=== PATIENT | female | born 1995 | race Caucasian/White ===

== ENCOUNTER 2016-08-06 21:15 | Emergency (ER) | payer MEDICAID ==
[2016-08-06 21:21] VITALS: BP 140/86; PULSE 94; RESP 18; TEMP 98.4; O2SAT 98
--- NOTE | 2016-08-06 21:47 | C.PDOC ---
History Of Present Illness A 20 year old female presents to the emergency room for evaluation of bilateral neck pain that has gradually developed over the past 4 days. Pain is localized and worst with head rotation. Patient also reports, developed some sore throat since yesterday. Patient denies any known trauma/injury, headaches, dizziness, fever, chills, visual changes, focal deficits, CP, SOB, dyspea, nausea, vomiting , denies weakness, sensory or vascular deficits to B/L UEs, or any other active complaints. Time Seen by Provider: 08/06/16 21:45 Chief Complaint (Nursing): Back Pain History Per: Patient History/Exam Limitations: no limitations Onset/Duration Of Symptoms: Days (4) Current Symptoms Are (Timing): Still Present Quality Of Discomfort: "Pain" Severity: Mild Previous Symptoms: Neck Pain Associated Symptoms: None Exacerbating Factor(s): Movement (Head rotation) Recent travel outside of the [place]: No Past Medical History Reviewed: Historical Data, Nursing Documentation, Vital Signs Vital Signs: Last Vital Signs Temp 98.4 F 08/06/16 21:18 Pulse 94 H 08/06/16 21:18 Resp 18 08/06/16 21:18 BP 140/86 08/06/16 21:18 Pulse Ox 98 08/06/16 22:24 Family History: States: Unknown Family Hx - Social History Hx Tobacco Use: No Hx Alcohol Use: No Hx Substance Use: No - Immunization History Hx Tetanus Toxoid Vaccination: Yes Hx Influenza Vaccination: No Hx Pneumococcal Vaccination: No Review Of Systems Except As Marked, All Systems Reviewed And Found Negative. Constitutional: Negative for: Fever Eyes: Negative for: Vision Change Gastrointestinal: Negative for: Nausea, Vomiting Musculoskeletal: Positive for: Neck Pain (Bilateral neck pain) Neurological: Negative for: Headache, Dizziness Physical Exam - Physical Exam Appears: Well, Non-toxic, No Acute Distress Skin: Normal Color, Warm, Dry, No Rash, No Ecchymosis Head: Normacephalic Eye(s): bilateral: Normal Inspection Nose: Normal Oral Mucosa: Moist, No Drooling, No Trismus Throat: Erythema (mild B/L), No Exudate, No Drooling Neck: Decreased ROM (mild discomfort on head rotation to B/L sides due to pain.) , No Midline Cervical Tenderness, No Paracervical Tenderness, No Step Off Deformity, Other (Bilateral cervical tenderness over the length of trapezius muscles with muscle spasms.) Chest: Symmetrical, No Deformity, No Tenderness Cardiovascular: Rhythm Regular Respiratory: Normal Breath Sounds, No Rales, No Rhonchi, No Wheezing Back: Normal Inspection, No CVA Tenderness Extremity: Normal ROM, No Tenderness, No Pedal Edema, No Deformity, No Swelling Extremity: Bilateral: Atraumatic Neurological/Psych: Oriented x3, Normal Speech, Normal Motor, Normal Sensation, Normal Reflexes ED Course And Treatment O2 Sat by Pulse Oximetry: 98 Pulse Ox Interpretation: Normal Progress Note: On re-evaluation, pt is afebrile, hemodynamicaly stable. Non- toxic. PulsEOx 98%RA. ENT: no acute findings. Neck: exam c/w cervical strain , (-) meningeal sign. Lungs: CTA B/L, BS equal B/L. RST (-). Pt advised on course of ds. ref. to F/u with PMD in 1-2 days for re-eval. return if any new changes. Disposition Counseled Patient/Family Regarding: Studies Performed, Diagnosis, Need For Followup, Rx Given - Disposition Referrals: [facility] [Outside] Disposition Time: 22:22 Condition: STABLE Additional Instructions: Take medication as prescribed Keep neck strain Light duty to neck area Follow up with PMD in 2-3 days for re-evaluation. Return to ED if any worsening or new changes. Prescriptions: Ibuprofen [Motrin] 1 tab PO TID PRN #20 tab PRN Reason: Pain Methocarbamol [Robaxin] 500 mg PO TID #14 tab Instructions: Cervical Sprain (ED) - Clinical Impression Clinical Impression: Cervical strain - Scribe Statement The provider has reviewed the documentation as recorded by the Altaf Alonzo Provider Scribe Attestation: All medical record entries made by the Billieibjose were at my direction and personally dictated by me. I have reviewed the chart and agree that the record accurately reflects my personal performance of the history, physical exam, medical decision making, and the department course for this patient. I have also personally directed, reviewed, and agree with the discharge instructions and disposition.
== END 2016-08-06 22:43 | disposition home or self-care (01) ==
LOC: C.ER 21:15
DX: S16.1XXA Strain of muscle, fascia and tendon at neck level, initial encounter (principal); X58.XXXA Exposure to other specified factors, initial encounter; Y93.9 Activity, unspecified; Y92.9 Unspecified place or not applicable

== ENCOUNTER 2016-10-13 16:34 | Emergency (ER) | payer MEDICAID ==
[2016-10-13 16:37] VITALS: BMI 34.4
[2016-10-13 16:40] VITALS: BP 140/85; RESP 18; TEMP 99.4; O2SAT 100
--- NOTE | 2016-10-13 18:03 | C.PDOC ---
History Of Present Illness 21 y/o female presents to ED with complaints of sore throat and difficulty swallowing for 1 day. Patient also reports body aches, malaise, and mild nasal congestion. Denies cough, vomiting, or diarrhea. Notes she has not taken any medications for symptoms. Time Seen by Provider: 10/13/16 17:27 Chief Complaint (Nursing): ENT Problem History Per: Patient History/Exam Limitations: None Onset/Duration Of Symptoms: Days Current Symptoms Are (Timing): Still Present Past Medical History Reviewed: Historical Data, Nursing Documentation, Vital Signs Vital Signs: Last Vital Signs Temp 99.4 F 10/13/16 16:36 Pulse 78 10/13/16 18:14 Resp 18 10/13/16 16:36 BP 140/85 10/13/16 16:36 Pulse Ox 100 10/13/16 18:14 - Medical History PMH: No Chronic Diseases Family History: States: Unknown Family Hx - Social History Hx Tobacco Use: No Hx Alcohol Use: No Hx Substance Use: No - Immunization History Hx Tetanus Toxoid Vaccination: Yes Hx Influenza Vaccination: No Hx Pneumococcal Vaccination: No Review Of Systems Except As Marked, All Systems Reviewed And Found Negative. Constitutional: Positive for: Malaise. Negative for: Fever, Chills ENT: Positive for: Nose Congestion, Throat Pain, Other (difficulty swallowing). Negative for: Nose Discharge Respiratory: Negative for: Cough Gastrointestinal: Negative for: Nausea, Vomiting Skin: Negative for: Rash Neurological: Negative for: Headache Physical Exam - Physical Exam Appears: Non-toxic, No Acute Distress Skin: Normal Color, Warm, Dry Head: Atraumatic, Normacephalic Eye(s): bilateral: Normal Inspection, PERRL, EOMI Ear(s): Bilateral: Normal Nose: Normal Oral Mucosa: Moist Throat: Erythema, No Exudate, Other (moderately enlarged and erythematous tonsils bilaterally) Neck: Supple Lymphatic: Adenopathy (tender enlarged cervical nodes) Chest: Symmetrical Cardiovascular: Rhythm Regular, No Murmur Respiratory: Normal Breath Sounds, No Rales, No Rhonchi, No Stridor, No Wheezing Gastrointestinal/Abdominal: Soft, No Tenderness Back: Normal Inspection Extremity: Normal ROM, Capillary Refill (< 2 sec. ) Neurological/Psych: Oriented x3, Normal Speech, Normal Cognition ED Course And Treatment O2 Sat by Pulse Oximetry: 100 (RA) Pulse Ox Interpretation: Normal Progress Note: Treated with Pen-Vee K. On reevaluation, pt resting comfortably, and reports improvement. Advised follow up with PMD/clinic for further evaluation. Disposition Counseled Patient/Family Regarding: Need For Followup - Disposition Referrals: Naren Virgen MD [Non-Staff] - Disposition: HOME/ ROUTINE Disposition Time: 18:01 Condition: GOOD Prescriptions: Penicillin VK [Pen-Vee K] 2 tab PO BID #28 tab Instructions: Pharyngitis (ED) Forms: Work Excuse - Clinical Impression Clinical Impression: Pharyngitis - Scribe Statement The provider has reviewed the documentation as recorded by the Billieibjose Do All medical record entries made by the Billieibjose were at my direction and personally dictated by me. I have reviewed the chart and agree that the record accurately reflects my personal performance of the history, physical exam, medical decision making, and the department course for this patient. I have also personally directed, reviewed, and agree with the discharge instructions and disposition.
[2016-10-13 18:14] VITALS: PULSE 78
== END 2016-10-13 18:15 | disposition home or self-care (01) ==
LOC: C.ER 16:34
DX: J02.9 Acute pharyngitis, unspecified (principal)

== ENCOUNTER 2017-12-08 19:10 | Inpatient (IN) | payer MEDICAID, OTHER ==
--- NOTE | 2017-12-08 19:30 | OBHP ---
Datetime: 12/08/2017 19:26 IP Adm Impression: Term, intrauterine IP Admit Plan: Admit to unit; Initiate labor induction protocol Admit Comment, IP Provider: at 39.5wejs scot fr induction for gdma1 , no ctxs, vnb ,lof+fm obhx primi pmh gdma1 med pnv all nkda psh de soch de a/p at 39+weekds induction for gdma1 admit to l_d npo/ivf labs fs ceervidil cont mariama and efm anticipate Pelvic Type - PN: Adequate Extremities - PN: Normal Abdomen - PN: Normal Back - PN: Normal Breast - PN: Normal Lungs - PN: Normal Heart - PN: Normal Thyroid - PN: Normal Neurologic - PN: Normal HEENT - PN: Normal General - PN: Normal FHR - Baseline A Provider: 130 Contraction Comments Provider: no e IP Hx Assessment: The History has been Reviewed and is Current EGA AdmitDate IP: 39.5 Vital Signs Provider: Reviewed; Within Normal Limits IP Chief Complaint: Scheduled induction of labor NICHD Variability Prov Fetus A: Moderate 6-25bpm NICHD Accel Fetus A IP Provider: 15X15 FHR Category Provider Fetus A: Category I Genitourinary Exam: Normal DTRs - PN: Normal
[2017-12-08 19:31] VITALS: BMI 41.5
[2017-12-08] MEDS ORDERED: Nalbuphine HCL 10 mg/ml Ampule IVP PRN (19:36)
[2017-12-08] MEDS: Lactated Ringer's 1,000 ML IV SCH (20:00)
[2017-12-08 20:48] LABS: BASO % 0.4 % (0.0-2.0); EOS # 0.1 K/uL (0.0-0.7); EOS % 1.9 % (0.0-4.0); HEMOGLOBIN 12.8 g/dL (11.0-16.0); LYMPH # 1.9 K/uL (1.0-4.3); LYMPH % 27.5 % (20.0-40.0); MEAN CELL VOLUME 88.5 fL (81.0-99.0); MEAN CORPUSCULAR HEMOGLOBIN 29.5 pg (27.0-31.0); MEAN CORPUSCULAR HGB CONC 33.3 g/dL (33.0-37.0); MEAN PLATELET VOLUME 9.2 fL (7.2-11.7); MONO # 0.6 K/uL (0.0-0.8); MONO % 9.4 % (0.0-10.0); NEUT # 4.2 K/uL (1.8-7.0); NEUT % 60.8 % (50.0-75.0); NRBC % 0.2 % (0.0-2.0); RBC 4.34 Mil/uL (3.80-5.20); RED CELL DISTRIBUTION WIDTH 14.6 % (11.5-14.5); WHITE BLOOD COUNT 6.9 K/uL (4.8-10.8)
[2017-12-08 20:57] LABS: SQUAMOUS EPITHIAL 1 /hpf (0-5); URINE BACTERIA RARE (<OCC); URINE BILIRUBIN NEGATIVE (NEGATIVE); URINE BLOOD NEGATIVE (NEGATIVE); URINE CLARITY Clear (Clear); URINE COLOR Yellow (YELLOW); URINE GLUCOSE (UA) NORMAL (Normal); URINE LEUKOCYTE ESTERASE 3+ Leu/uL (Negative); URINE PROTEIN NEGATIVE (NEGATIVE); URINE UROBILINOGEN NORMAL mg/dL (0.2-1.0)
[2017-12-08 21:04] LABS: ALB/GLOB RATIO 1.2 (1.0-2.1); ALBUMIN 3.7 g/dL (3.5-5.0); ALT/SGPT 18 U/L (9-52); AST/SGOT 22 U/L (14-36); BLOOD UREA NITROGEN 11 mg/dL (7-17); CALCIUM 9.2 mg/dl (8.6-10.4); GFR AFRICAN-AMERICAN > 60; GFR NON-AFRICAN AMERICAN > 60
[2017-12-09] MEDS ORDERED: Penicillin G 5 Million Unit Vial IVPB ONE (03:30)
[2017-12-09] MEDS ORDERED: Penicillin G Potassium 5 MU in Dextrose 5% In Water 50 ML IV ONE (04:00)
--- NOTE | 2017-12-09 11:27 | OBPN ---
Datetime: 12/09/2017 10:40 IP Progress Impression Other: Adequate cervical response IP Procedures: Sterile Vag Exam IP Progress Plan: Cervical Ripening; Anticipate Vaginal Delivery Membranes, Provider: Intact Contraction Comments Provider: irregular FHR - Baseline A Provider: 140 Gestation - Est Wks by US: 39w 6d IP Progress Note Comment: Patient received in room#3. ditting up in bed - "I want this over this". ( +) AFMl denies LOF, VB; +/- miold contractions Cervical exam: as above. cervidil removed Assessment: 22 y.o. P0, 39w 6d, IOL for A1GDM; S/P cervidil x 1 with good cervical response. Leslee gory tracing. F.S. 103mg/dL at 1000 hours. D/W patient continued cervical ripening and possible pitoc in. Pain relief also discussed, epidural encouraged. Patient expressed an understanding and agrees; n o questions offered. Patient is clinically stable. PlaN" 1) Observe x 15 min 2) Enema 3) Cytotec 50 micrograms p.o. x 1 4) Observation 5) Anticipate vaginal delivery Vital Signs Provider: Reviewed; Within Normal Limits NICHD Accel Fetus A IP Provider: 15X15 FHR Category Provider Fetus A: Category I NICHD Variability Prov Fetus A: Moderate 6-25bpm Dilatation, Provider: 3 Effacement, Provider: 30 Station, Provider: -3 NICHD Decel Fetus A IP Provider: None
[2017-12-09] MEDS: Lactated Ringer's 1,000 ML IV SCH (12:08)
[2017-12-09] MEDS ORDERED: Bupivacaine HCl/FentaNYL Cit 100 ML EPI ONE (13:23)
[2017-12-09] MEDS ORDERED: Oxytocin 30 UNIT 30 UNITS/500 ML BAG IV ONE (16:29)
[2017-12-09] MEDS ORDERED: Oxytocin 30 UNIT 30 UNITS/500 ML BAG IV SCH (16:30)
[2017-12-09] MEDS ORDERED: Nalbuphine HCL 10 mg/ml Ampule IVP PRN (16:30)
--- NOTE | 2017-12-09 19:38 | OBPN ---
Datetime: 12/09/2017 19:30 IP Progress Impression: Normal progression of labor IP Procedures: Sterile Vag Exam IP Progress Plan: Continue present management; Augmentation; Anticipate Vaginal Delivery Membranes, Provider: Ruptured Contraction Comments Provider: 2 FHR - Baseline A Provider: 145 Gestation - Est Wks by US: 39w 6d Presentation-Admit: Vertex IP Progress Note Comment: Patient received in LDR#3, feeling more vaginal pressure and low back pain . Cervical exam: as above. Pitocin at 8 mUnits/min Assessment: 22 y.o. P0, 39w 6d, A1GDM, at end of Stage 1 of labor. F.S. 1715 hours 90 mg/dL. Leslee dagoberto 1 tracing. Clinically stable. NB: call to clinic at 0900 hours: GBS (-). Clinically sta ble. Plan: 1) Anticipate vaginal delivery Vital Signs Provider: Reviewed; Within Normal Limits NICHD Accel Fetus A IP Provider: 15X15 FHR Category Provider Fetus A: Category I NICHD Variability Prov Fetus A: Moderate 6-25bpm Dilatation, Provider: 10 Effacement, Provider: 100 Station, Provider: 2 NICHD Decel Fetus A IP Provider: None
[2017-12-09] MEDS ORDERED: Lidocaine PF 2% (5 ml) Inj (For Cardiac Arrhy) ONE ×2 (22:36→22:38)
[2017-12-09] MEDS ORDERED: Oxycodone/Acetaminophen 5/325 mg Tab PO PRN ×2 (23:05)
--- NOTE | 2017-12-09 23:24 | OBDS ---
DELIVERY PERSONNEL Delivery Doctor: Brandon Hoffman MD Scrub Nurse: Anabella Ray Consumer Analyst: Latanya Steeel RN Anesthesiologist: Jason Erickson MD MATERNAL INFORMATION Delivery Anesthesia: Epidural Medications in Delivery: PITOCIN Estimated Blood Loss (ml): 500 Placenta Cultured: No Maternal Complications: None RN Comments: LIVE BABY BOY SKIN TO SKIN DONE Provider Comments: This is a 22 year old now P1001 delivered a viable male via over 2nd degree laceration perineum and first degree on the left vaginal wall on 12/09/17 at 10:16pm. Lacerati ons were repaired with 2-0 and 3-0 chromic. The 's head was delivered in a controlled manner wi th LOP presentation. The infant's shoulder were delivered atraumatically. The 's body was deliv ered without difficulty. Infant's mouth and nose were suctioned with bulb syringe. The cord was clamp ed and cut. Cord blood was collected. was placed on mother's abdomen. An intact placenta with 3VC was delivered. Uterine exploraiton was performed; uterus was firm with fundal massage and IV adeline tamra. Examination of cervix, vagina and perineum showed no extensions. EBL at 500ml. The infant weighe d 8lbs 5oz with APGARS 9 and 9. Mom and baby are recovering in stable condition. All sponge counts an d instruments are correct. Dr. Hoffman was present for the entire delivery. Attending Note: I was present for and participated in the delivery and repair as described above. I agree with the description of events. LABOR SUMMARY EDC: 12/10/2017 00:00 No. Babies in Womb: 1 Attempted: No Labor Anesthesia: Epidural LABOR INFORMATION Reason for Induction: Other Reason for Induction Other: GDM Onset of Labor: 12/09/2017 10:27 Complete Dilatation: 12/09/2017 19:24 Cervical Ripening Agents: Cervidil; Cytotec @ Oxytocin: Augmentation Group B Beta Strep: Negative Antibiotics # of Doses: 2 Antibiotics Time of Last Dose: 12/09/2017 0810 Steroids Given: None Reason Steroids Not Administered: Not Applicable MEMBRANES Membranes Rupture Method: Spontaneous Rupture of Membranes: 12/09/2017 11:42 Length of Rupture (hrs): 10.57 Amniotic Fluid Color: Clear Amniotic Fluid Amount: Large Amniotic Fluid Odor: Normal STAGES OF LABOR Stage 1 hrs: 8 Stage 1 min: 57 Stage 2 hrs: 2 Stage 2 min: 52 Stage 3 hrs: 0 Stage 3 min: 9 Total Time in Labor hrs: 11 Total Time in Labor min: 58 VAGINAL DELIVERY Episiotomy: None Laceration Extension: First Degree Laceration Type: Perineal; Vaginal Other Laceration: 2.0 _ 3.0 CHROMIC Laceration Repair: Yes Laceration Repair Note: 3-0 chromic - first degree, left hymenal laceration 2-0 and 3-0 chromic - 2nd degree perineal laceration - all repaired in routine fashion Hemostasis assured Patient tolerated procedure well Initial Vag Sponge Count: 10 Final Vag Sponge Count: 10 Initial Vag Sharps Count: 0 Final Vag Sharps Count: 2 Sponge Count Correct: Yes; Vaginal Sweep Performed Sharps Count Correct: Yes Count Comment: Correct BABY A INFORMATION Infant Delivery Date/Time: 12/09/2017 22:16 Method of Delivery: Vaginal Born in Route : No : N/A Forceps: N/A Vacuum Extraction: N/A Shoulder Dystocia : No SHOULDER DYSTOCIA BABY A Delivery Date/Time: 12/09/2017 22:16 PRESENTATION/POSITION BABY A Presentation: Cephalic Cephalic Presentation: Vertex Vertex Position: Left Occipital Posterior Breech Presentation: N/A PLACENTA INFORMATION BABY A Placenta Delivery Time : 12/09/2017 22:25 Placenta Method of Delivery: Spontaneous Placenta Status: Delivered (Annotations: Data stored by N on behalf of user) SCORES BABY A Heart Rate 1 min: >100 bpm Resp Effort 1 min: Good Cry Reflex Irritability 1 min: Cough or Sneeze or Pulls Away Muscle Tone 1 min: Active Motion Color 1 min: Body [place], Extremities Blue Resuscitation Effort 1 min: Tactile Stimulation SCORE 1 MIN: 9 Heart Rate 5 min: >100 bpm Resp Effort 5 min: Good Cry Reflex Irritability 5 min: Cough or Sneeze or Pulls Away Muscle Tone 5 min: Active Motion Color 5 min: Body [place], Extremities Blue Resuscitation Effort 5 min: Tactile Stimulation SCORE 5 MIN: 9 INFANT INFORMATION BABY A Gestational Age at Delivery: 39.6 Gestational Status: Term Outcome : Liveborn Condition : Stable Sex: Male IDENTIFICATION/MEDS BABY A ID Band Number: [id number] ID Band Location: Left Leg; Left Arm Sensor Applied: Yes Sensor Number: [id number] Sensor Location : Cord Clamp Vitamin K Given : Not Given Erythromycin Given: Not Given WEIGHT/LENGTH BABY A Birthweight (gms): 3770 Infant Weight (lb): 8 Weight (oz): 5 Infant Length Inches: 20.00 Infant Length cms: 50.8 CORD INFORMATION BABY A No. Cord Vessels: 3 Nuchal Cord : N/A Cord Blood Taken: Yes ASSESSMENT BABY A Complications: None Physical Findings at Delivery: Within Normal Limits Infant Respirations: Appears Normal Health And Wellness Instructor/ALS Called : No Infant Care By: LYDIA ALVARADO Transferred To: Remains with Mother
[2017-12-10 07:57] LABS: BASO # 0.1 K/uL (0.0-0.2); BASO % 0.7 % (0.0-2.0); EOS % 0.1 % (0.0-4.0); HEMOGLOBIN 11.5 g/dL (11.0-16.0); LYMPH % 9.9 % (20.0-40.0); MEAN CORPUSCULAR HEMOGLOBIN 30.3 pg (27.0-31.0); MEAN CORPUSCULAR HGB CONC 34.1 g/dL (33.0-37.0); MEAN PLATELET VOLUME 9.3 fL (7.2-11.7); MONO % 5.2 % (0.0-10.0); NEUT # 16.7 K/uL (1.8-7.0); NEUT % 84.1 % (50.0-75.0); NRBC % 0.1 % (0.0-2.0); PLATELET COUNT 267 K/uL (130-400); RED CELL DISTRIBUTION WIDTH 14.7 % (11.5-14.5)
[2017-12-10 07:59] LABS: WHITE BLOOD COUNT 19.9 K/uL (4.8-10.8)
[2017-12-10 08:30] LABS: BANDS 2 % (0-2); LYMPHOCYTE 7 % (20-40); MONOCYTE 1 % (0-10); NEUTROPHIL 90 % (50-75); PLATELET ESTIMATE NORMAL (NORMAL); TOTAL CELLS COUNTED 100
[2017-12-10 08:31] LABS: HYPOCHROMIC SLIGHT; POLYCHROMIC SLIGHT
[2017-12-10] MEDS: Multiple Vitamins Tab PO SCH (09:34)
--- NOTE | 2017-12-10 09:39 | OBPPN ---
Datetime: 12/10/2017 09:23 PP Nausea Prov: Denies PP Flatus Prov: Yes PP Breasts Prov: Normal PP Heart Prov: Normal PP Lungs Prov: Normal PP Abdomen/Uterus Prov: Normal PP Extremities Prov: Normal PP Progress Prov: Normal PP Comments Phys Exam Prov: hgb 11.5 wbc 19.9 breast nonengorged fundus firm, nt PP Impression Prov: Normal progression PP Plan Prov: Continue present management PP Progress Note Prov: s: no c/o. tolerating reg diet; denies dysuria, increased urinary freq, vag d /c. denies cough i: sp doing well wbc 19.9 w/ afvss p: routine pp care if temp elev will need further eval Vital Signs Provider PP: Within Normal Limits
[2017-12-10] MEDS: Benzocaine/Menthol 20%-0.5% Topical Spray (60 ml) TOP SCH ×2 (12:27→18:28)
[2017-12-11 00:08] VITALS: O2SAT 97
--- NOTE | 2017-12-11 09:00 | OBPPN ---
Datetime: 12/11/2017 08:47 PP Pain Prov: Within normal limits PP Nausea Prov: Denies PP Flatus Prov: Yes PP BM Prov: No PP Breasts Prov: Normal PP Heart Prov: Normal PP Lungs Prov: Normal PP Abdomen/Uterus Prov: Normal PP Lochia Prov: Normal PP Vulva/Perineum Prov: Normal PP CVA Tenderness Prov: Normal PP Extremities Prov: Normal PP C/S Incision Prov: Not Applicable PP Progress Prov: Normal PP Comments Phys Exam Prov: Breasts: no cracked nipples. Abdomen: Obese. Non distended. Fundus firm, mobile, non tender, 2 FB below umbilicus. Mininal loc hia rubra. Episiotomy site - non tender, no swelling Extremities: no calf tenderness All other systems reviewed and are negative PP Impression Prov: Normal progression PP Plan Prov: Discharge PP Progress Note Prov: Patient received in room 456, sitting in bed, in good spirits. . Denies headaches, dizziness, lightheadedness. Desires circumcision. P.E.: as above. Obese, in NAD. Awake, alert, oriented to time, person and place. Pleasant and nursing information systems coordinator perative. - PPD#1 H/H 11.5/33.8. Rh(+) Assessment: PPD#2, 22 y.o. P1, S/P . Afebrile, vital signs stable. Consent obtained for circu mcision. Patient is clinically stable. Plan: 1) Discharge home 2) See full discharge home IP PP Procedures: None Vital Signs Provider PP: Reviewed; Within Normal Limits
--- NOTE | 2017-12-11 09:00 | OBDCSUM ---
Datetime: 12/11/2017 08:53 Discharged to, Provider: Home Follow up at, Provider: Clinic Disch Instr Activity: Normal activity; May be up to bathroom; May be up for meals; May Shower Disch Instr Diet: Regular Discharge Instructions, Provider: Routine instructions given Discharge Diagnosis, Provider: Term Delivered Discharge Time: 12/11/2017 12:00 Follow up in weeks, Provider: 6 weeks Disch Referrals: None Contraception discussed, Prov: Yes Disch Activity Restrictions: No lifting; No sexual activity; Nothing in vagina - [place], tampon s, douche Discharge Diagnosis Prov Other: Gestational diabetes mellitus - diet controoled Contraception counseling Contraception after Delivery: Undecided
[2017-12-11] MEDS: Multiple Vitamins Tab PO SCH (10:33)
[2017-12-11 18:25] VITALS: BP 112/64; PULSE 80; RESP 18; TEMP 97.1
== END 2017-12-11 13:50 | disposition home or self-care (01) | DRG 372 ==
LOC: C.EROB 19:10 → UNDOADMIN 19:14 → C.4D 19:14 → C.4M 12-10 01:30
PROVIDERS: ADMIT Obstetrics & Gynecology; ATTEND Obstetrics & Gynecology
PROC: 3E0P7VZ Introduction of Hormone into Female Reproductive, Via Natural or Artificial Opening (ICD-10-PCS; 2017-12-08)
PROC: 10E0XZZ Delivery of Products of Conception, External Approach (ICD-10-PCS; principal; 2017-12-09)
PROC: 0KQM0ZZ Repair Perineum Muscle, Open Approach (ICD-10-PCS; 2017-12-09)
PROC: 0HQ9XZZ Repair Perineum Skin, External Approach (ICD-10-PCS; 2017-12-09)
DX: O24.420 Gestational diabetes mellitus in childbirth, diet controlled (principal); O70.1 Second degree perineal laceration during delivery; O70.0 First degree perineal laceration during delivery; O99.214 Obesity complicating childbirth; E66.9 Obesity, unspecified; Z3A.39 39 weeks gestation of pregnancy; Z37.0 Single live birth